=== PATIENT | male | born 1975 | race Two or more races ===

== ENCOUNTER 2017-08-24 16:02 | Inpatient (IN) | payer OTHER ==
[~2017-08-24] VITALS: Ht 172.7 cm; Wt 86.7 kg
[~2017-08-24 16:02] MED LIST: HYDR12.56 PO
[2017-08-24] MEDS ORDERED: SODIUM CHLORIDE 0.9% 1,000 ML IV ONE ×2 (16:55)
[2017-08-24] MEDS ORDERED: NALBUPHINE HCL 10 MG/1ml INJECTION IV ONE (17:00)
[2017-08-24] MEDS ORDERED: ONDANSETRON HCL 4 MG/2 ML VIAL IV ONE (17:00)
[2017-08-24] MEDS ORDERED: IOHEXOL 300 MG/ML 100ML BOTTLE IJ ONE (17:17)
[2017-08-24 18:57] LABS: Basophils # (auto) 0.1 uL; Basophils % (auto) 0.5 % (0.0-2.0); Eosinophils # (auto) 0 uL; Eosinophils % (auto) 0.5 % (0.0-7.0); Hematocrit 47.5 % (41.0-53.0); Hemoglobin 16.1 g/dL (13.5-17.5); Lymphocytes # (auto) 1.7 uL; Lymphocytes % (auto) 16.6 % (10.0-50.0); Mean Corpuscular Hemoglobin 29.4 pg (28.0-32.0); Mean Corpuscular Volume 86.7 fL (80.0-100.0); Monocytes # (auto) 0.7 uL; Monocytes % (auto) 7.3 % (0.0-12.0); Neutrophils # (auto) 7.6 uL; Neutrophils % (auto) 75.1 % (37.0-80.0); Nucleated Red Blood Cells % 0.1 %; Platelet Count (auto) 201 10^3/uL (140-450); Red Blood Cells 5.48 10^6/uL (4.5-5.90); Red Cell Distribution Width 13.7 % (11.8-14.3); White Blood Cell 10.2 10^3/uL (4.4-10.8)
[2017-08-24 19:13] LABS: Alanine Aminotransferase 31 U/L (16-61); Anion Gap 10 (5-15); Aspartate Aminotransferase 22 U/L (15-37); BUN/Creatinine Ratio 15.1; Blood Urea Nitrogen 14 mg/dL (7-18); Calcium 9.3 mg/dL (8.5-10.1); Carbon Dioxide 23 mmol/L (21-32); Chloride 103 mmol/L (98-107); GFR African American 114 mL/min; GFR Non-African American 94 mL/min; Glucose 93 mg/dL (74-106); Lipase 69 U/L (73-393); Potassium 3.7 mmol/L (3.5-5.1); Sodium 136 mmol/L (136-145)
[2017-08-24 19:18] LABS: Alkaline Phosphatase 89 U/L (45-117); Bilirubin, Total 0.6 mg/dL (0.2-1.0); Total Protein 8.5 g/dL (6.4-8.2)
[2017-08-24] MEDS ORDERED: HCTZ25T PO (19:41)
[2017-08-24] MEDS ORDERED: ATEN-60 PO (19:41)
[2017-08-24 20:09] LABS: Urine Bacteria NONE SEEN /hpf (None Seen); Urine Blood Negative /uL (Negative); Urine Specific Gravity 1.015 (1.001-1.035); Urine WBC <1 /hpf (0 - 3)
[2017-08-24] MEDS: D5W/SOD CHL 0.45% 1,000 ML IV SCH (21:14)
[2017-08-24] MEDS ORDERED: ATENOLOL 25 MG TABLET PO SCH (22:00)
[2017-08-24 22:31] VITALS: BP 127/87
[2017-08-25] MEDS: D5W/SOD CHL 0.45% 1,000 ML IV SCH (04:22)
[2017-08-25 05:14] VITALS: BP 109/63
[2017-08-25 06:30] LABS: Basophils # (auto) 0 uL; Basophils % (auto) 0.6 % (0.0-2.0); Eosinophils # (auto) 0.1 uL; Eosinophils % (auto) 1.5 % (0.0-7.0); Hematocrit 44.9 % (41.0-53.0); Hemoglobin 15.2 g/dL (13.5-17.5); Lymphocytes # (auto) 1.7 uL; Lymphocytes % (auto) 27.5 % (10.0-50.0); Mean Corpuscular Hemoglobin 29.4 pg (28.0-32.0); Mean Corpuscular Volume 86.7 fL (80.0-100.0); Monocytes # (auto) 0.6 uL; Neutrophils # (auto) 3.7 uL; Neutrophils % (auto) 60.4 % (37.0-80.0); Nucleated Red Blood Cells % 0.1 %; Platelet Count (auto) 182 10^3/uL (140-450); Red Blood Cells 5.18 10^6/uL (4.5-5.90); Red Cell Distribution Width 13.6 % (11.8-14.3); White Blood Cell 6.2 10^3/uL (4.4-10.8)
[2017-08-25 06:54] LABS: Albumin 3.5 g/dL (3.4-5.0); BUN/Creatinine Ratio 14.3; Bilirubin, Total 0.6 mg/dL (0.2-1.0); Calcium 8.6 mg/dL (8.5-10.1); Potassium 3.5 mmol/L (3.5-5.1); Total Protein 7.6 g/dL (6.4-8.2)
[2017-08-25 09:02] VITALS: BP 121/63
[2017-08-25] MEDS: MORPHINE SULFATE 4 MG/ML SYR/VIAL IV PRN ×2 (09:35→15:00)
[2017-08-25] MEDS: HCTZ 25 MG TAB PO SCH (09:35)
[2017-08-25] MEDS: ONDANSETRON HCL 4 MG/2 ML VIAL IV PRN ×2 (09:35→15:00)
[2017-08-25] MEDS: LACTULOSE 20Gm/30ML SOLN PO SCH ×2 (11:23→18:00)
[2017-08-25 13:00] VITALS: BP 114/54
[2017-08-25 17:00] VITALS: BP 114/57
[2017-08-25 22:00] VITALS: BP 123/70
[2017-08-26 05:00] VITALS: BP 118/82
[2017-08-26] MEDS: LACTULOSE 20Gm/30ML SOLN PO SCH ×3 (06:00→12:00)
[2017-08-26] MEDS: MORPHINE SULFATE 4 MG/ML SYR/VIAL IV PRN (08:06)
[2017-08-26] MEDS: ONDANSETRON HCL 4 MG/2 ML VIAL IV PRN (08:06)
[2017-08-26 09:13] VITALS: BP 118/67
[2017-08-26] MEDS: HCTZ 25 MG TAB PO SCH (09:36)
[2017-08-26 13:02] VITALS: BP 131/71
[2017-08-26 13:42] VITALS: BP 131/71
[2017-08-26 13:53] VITALS: BP 131/71
[2017-08-26] MEDS ORDERED: METOPROLOL TARTRATE 50 MG TAB PO SCH (22:00)
== END 2017-08-26 15:06 | DRG 392 ==
LOC: ER 16:02 → EEVIPCON 16:03 → OVERFLOW 16:03 → TELE-E-ADS 22:20
PROVIDERS: ADMIT Internal Medicine; ATTEND Internal Medicine
DX: K59.00 Constipation, unspecified (principal); K86.1 Other chronic pancreatitis; I10 Essential (primary) hypertension; Z83.3 Family history of diabetes mellitus; Z87.891 Personal history of nicotine dependence
CPT/HCPCS: 36415; 71045; 74176; 80053; 81001; 82150; 83690; 84484; 85025; 87081; 96361; 96374; 96375; J2405; J7042

== ENCOUNTER 2018-01-01 11:15 | Inpatient (IN) | payer OTHER ==
[~2018-01-01] VITALS: Ht 172.7 cm; Wt 89.5 kg
[~2018-01-01 11:15] MED LIST changes: +ATEN-60 PO; +HCTZ25T PO; -HYDR12.56 PO
[2018-01-01 11:50] LABS: Basophils # (auto) 0 uL; Basophils % (auto) 0.5 % (0.0-2.0); Eosinophils # (auto) 0 uL; Eosinophils % (auto) 0.4 % (0.0-7.0); Hematocrit 49.3 % (41.0-53.0); Hemoglobin 16.8 g/dL (13.5-17.5); Lymphocytes # (auto) 1.5 uL; Mean Corpuscular Volume 85.3 fL (80.0-100.0); Monocytes # (auto) 0.5 uL; Monocytes % (auto) 6.9 % (0.0-12.0); Neutrophils # (auto) 4.9 uL; Neutrophils % (auto) 70.2 % (37.0-80.0); Nucleated Red Blood Cells % 0.2 %; Platelet Count (auto) 225 10^3/uL (140-450); Red Blood Cells 5.77 10^6/uL (4.5-5.90); Red Cell Distribution Width 13.9 % (11.8-14.3)
[2018-01-01] MEDS ORDERED: SODIUM CHLORIDE 0.9% 1,000 ML IVB ONE (11:59)
[2018-01-01] MEDS ORDERED: MORPHINE SULF INJ 2 MG/ML SYRINGE 1ML IV ONE (12:00)
[2018-01-01] MEDS ORDERED: MORPHINE SULFATE 8mg/ml INJ SDV IV ONE (12:00)
[2018-01-01] MEDS ORDERED: ONDANSETRON HCL 4 MG/2 ML VIAL IV ONE (12:00)
[2018-01-01 12:23] LABS: Albumin 4.7 g/dL (3.4-5.0); BUN/Creatinine Ratio 11.2; Bilirubin, Total 0.6 mg/dL (0.2-1.0); Calcium 9.7 mg/dL (8.5-10.1); Potassium 3.8 mmol/L (3.5-5.1); Total Protein 9.2 g/dL (6.4-8.2)
[2018-01-01] MEDS ORDERED: MORPHINE SULF INJ 2 MG/ML SYRINGE 1ML ONE (13:07)
[2018-01-01 13:45] LABS: Blood Alcohol < 3.0 mg/dL (0-5); Lipase 71 U/L (73-393); Magnesium 2.1 mg/dL (1.6-2.6)
[2018-01-01 14:43] LABS: Urine WBC None Seen /hpf (0 - 3)
[2018-01-01 15:03] LABS: Urine Bacteria NONE SEEN /hpf (None Seen); Urine Blood Negative /uL (Negative); Urine Specific Gravity 1.011 (1.001-1.035)
[2018-01-01] MEDS ORDERED: MORPHINE SULFATE 8mg/ml INJ SDV IV PRN (16:15)
[2018-01-01] MEDS ORDERED: ONDANSETRON HCL 4 MG/2 ML VIAL IV PRN (16:15)
[2018-01-01] MEDS ORDERED: MORPHINE SULF(PF) 0.5MG/ML 10ML VIAL IV PRN (16:15)
[2018-01-01] MEDS ORDERED: NITROGLYCERIN 0.4 MG SL TAB SL PRN (16:15)
[2018-01-01] MEDS ORDERED: D5W/SOD CHL 0.45% 1,000 ML IV ONE (16:15)
[2018-01-01] MEDS ORDERED: IOHEXOL 300 MG/ML 100ML BOTTLE IJ ONE (17:25)
[2018-01-01 18:05] VITALS: BP 152/88
[2018-01-01] MEDS: KETOROLAC TROMETH 30 MG/ML 1ML VIAL IV PRN (18:37)
[2018-01-01] MEDS: PANTOPRAZOLE 40 MG/10 ML VIAL IV SCH (21:45)
[2018-01-01 22:00] VITALS: BP 115/60
[2018-01-02] MEDS: KETOROLAC TROMETH 30 MG/ML 1ML VIAL IV PRN ×3 (03:20→13:49)
[2018-01-02 05:00] VITALS: BP 115/70
[2018-01-02 08:22] LABS: Albumin 3.6 g/dL (3.4-5.0); Calcium 8.7 mg/dL (8.5-10.1); Potassium 4.1 mmol/L (3.5-5.1)
[2018-01-02 08:24] LABS: BUN/Creatinine Ratio 12.3
[2018-01-02 08:27] LABS: Total Protein 7.7 g/dL (6.4-8.2)
[2018-01-02 09:04] VITALS: BP 109/73
[2018-01-02] MEDS: ATENOLOL 25 MG TAB PO SCH (10:00)
[2018-01-02] MEDS ORDERED: HCTZ 25 MG TAB PO ONE (10:00)
[2018-01-02] MEDS: PANTOPRAZOLE 40 MG/10 ML VIAL IV SCH ×2 (10:38→20:33)
[2018-01-02] MEDS: HYDROcodone-ACET 10/325MG TAB PO PRN ×2 (11:22→17:40)
[2018-01-02 12:00] VITALS: BP 131/68
[2018-01-02 16:07] LABS: INR 0.99 (0.9-1.15); Prothrombin Time 10.6 sec (9.27-12.13)
[2018-01-02 17:35] VITALS: BP 127/71
[2018-01-02 21:38] VITALS: BP 130/72
[2018-01-03] MEDS: HYDROcodone-ACET 10/325MG TAB PO PRN ×4 (01:34→19:59)
[2018-01-03 05:00] VITALS: BP 129/75
[2018-01-03 07:35] VITALS: BP 130/72
[2018-01-03] MEDS: PANTOPRAZOLE 40 MG/10 ML VIAL IV SCH ×2 (08:18→21:29)
[2018-01-03] MEDS: ATENOLOL 25 MG TAB PO SCH (08:25)
[2018-01-03 12:30] VITALS: BP 129/72
[2018-01-03] MEDS: HCTZ 25 MG TAB PO SCH (15:43)
[2018-01-03 16:49] VITALS: BP 158/81
[2018-01-03 21:58] VITALS: BP 142/82
[2018-01-04 04:59] VITALS: BP 131/74
[2018-01-04] MEDS: HYDROcodone-ACET 10/325MG TAB PO PRN ×2 (05:52→21:25)
[2018-01-04 06:44] LABS: Basophils # (auto) 0 uL; Basophils % (auto) 0.6 % (0.0-2.0); Eosinophils # (auto) 0.1 uL; Eosinophils % (auto) 0.9 % (0.0-7.0); Hemoglobin 16.1 g/dL (13.5-17.5); Lymphocytes # (auto) 1.6 uL; Lymphocytes % (auto) 22.5 % (10.0-50.0); Mean Corpuscular Hemoglobin 29.7 pg (28.0-32.0); Mean Corpuscular Hgb Conc. 35.1 g/dL (32.0-36.0); Mean Corpuscular Volume 84.7 fL (80.0-100.0); Monocytes # (auto) 0.6 uL; Monocytes % (auto) 7.6 % (0.0-12.0); Neutrophils % (auto) 68.4 % (37.0-80.0); Nucleated Red Blood Cells % 0.2 %; Platelet Count (auto) 185 10^3/uL (140-450); Red Blood Cells 5.44 10^6/uL (4.5-5.90); Red Cell Distribution Width 13.5 % (11.8-14.3); White Blood Cell 7.3 10^3/uL (4.4-10.8)
[2018-01-04 07:13] LABS: Albumin 3.8 g/dL (3.4-5.0); BUN/Creatinine Ratio 10.9; Bilirubin, Total 0.7 mg/dL (0.2-1.0); Calcium 8.9 mg/dL (8.5-10.1); Potassium 3.5 mmol/L (3.5-5.1); Total Protein 7.8 g/dL (6.4-8.2)
[2018-01-04 08:00] VITALS: BP_SYST 129; BP_SYST 134; BP_DIAS 69; BP_DIAS 72
[2018-01-04] MEDS ORDERED: SODIUM CHLORIDE LOCK 10 ML ONE (08:15)
[2018-01-04] MEDS ORDERED: LIDOCAINE VISCOUS 2% 15ML UD ONE (08:15)
[2018-01-04] MEDS ORDERED: MIDAZOLAM HCL 5 MG/ML-1ML VIAL ONE (08:16)
[2018-01-04] MEDS ORDERED: diphenhdrAMINE HCL 50 MG/1 ML VL ONE (08:16)
[2018-01-04] MEDS ORDERED: fentaNYL CITRATE 100 MCG/2 ML VL ONE (08:16)
[2018-01-04] MEDS: ATENOLOL 25 MG TAB PO SCH (10:00)
[2018-01-04] MEDS: PANTOPRAZOLE 40 MG/10 ML VIAL IV SCH (10:28)
[2018-01-04] MEDS: HCTZ 25 MG TAB PO SCH (10:29)
[2018-01-04 12:00] VITALS: BP 147/72
[2018-01-04 16:00] VITALS: BP 122/72
[2018-01-04 21:53] VITALS: BP 124/69
[2018-01-05 05:06] VITALS: BP 126/60
[2018-01-05] MEDS: HYDROcodone-ACET 10/325MG TAB PO PRN ×2 (08:04→12:19)
[2018-01-05 08:22] VITALS: BP 128/73
[2018-01-05] MEDS ORDERED: PANT40T PO (09:06)
[2018-01-05 09:15] VITALS: BP 134/69
[2018-01-05] MEDS ORDERED: PANTOPRAZOLE 40 MG TAB PO SCH (10:00)
[2018-01-05] MEDS: HCTZ 25 MG TAB PO SCH (10:28)
[2018-01-05] MEDS: ATENOLOL 25 MG TAB PO SCH (10:29)
[2018-01-05 12:26] VITALS: BP 131/78
== END 2018-01-05 12:35 | DRG 392 ==
LOC: ER 11:15 → OVERFLOW 11:16 → EAST 17:48
PROVIDERS: ADMIT Internal Medicine; ATTEND Internal Medicine
PROC: 0DB68ZX Excision of Stomach, Via Natural or Artificial Opening Endoscopic, Diagnostic (ICD-10-PCS; principal; 2018-01-04 14:20)
DX: K29.70 Gastritis, unspecified, without bleeding (principal); G89.29 Other chronic pain; I10 Essential (primary) hypertension; K29.80 Duodenitis without bleeding; K40.20 Bilateral inguinal hernia, without obstruction or gangrene, not specified as recurrent; K86.89 Other specified diseases of pancreas; Z83.3 Family history of diabetes mellitus
CPT/HCPCS: 36415; 74178; 76705; 80053; 80320; 81001; 82150; 83690; 83735; 85025; 85610; 87081; 94761; 96361; 96374; 96375; C9113; J1885; J2250; J2405